=== PATIENT | male | born 1950 | race Caucasian/White ===

== ENCOUNTER → 2019-07-02 | Outpatient (CLI) | payer OTHER ==
--- NOTE | 2019-07-03 20:22 | SLE ---
[facility] [place] [address] POLYSOMNOGRAPHY STUDY Name: LUCHO GHOTRA Sid Room #: REG [facility]#: [id number] Admission: 07/02/19 ������������������ Attend Phys: Errol Kerns MD Discharge: ������������������ Date of : 52 Report #: [id number] THIS REPORT FOR: //name// CC: Errol FUNEZ DATE OF SERVICE: 07/02/2019 SLEEP STUDY ATTENDING PHYSICIAN: Dr. Lisa Carrion. The patient is 69 years old who weighs 217 pounds with a BMI of 30.3. The patient's [place] score is 5. The patient underwent diagnostic sleep study performed at [facility]. During the night study, the patient spent 423 minutes in bed and slept for 300 minutes with a sleep efficiency of 71%. Sleep latency was 28 minutes with a REM latency of 26.5 minutes, which is short. Overall, sleep architecture showed increased stage 1 and stage 2 sleep, absent slow wave and normal REM sleep. During the night of the study, the patient had one apnea, which was mixed and 42 hypopneas. The patient's apnea-hypopnea index was 8.6 per hour with a REM index of 19 per hour and a supine index of 0 per hour. EKG monitoring revealed average heart rate of 64 beats per minute. No sustained arrhythmias observed. No clinically significant PLM seen. Nocturnal oximetry study revealed an average oxygen saturation of 94% with lowest of 82%. Only 3 minutes were spent in oxygen saturation of less than 89%. Due to low AHI, the patient did not meet the split night criteria for CPAP initiation. IMPRESSION: 1. Mild sleep apnea-hypopnea syndrome with moderate increase during REM sleep. Total AHI 8.6 per hour with a REM AHI of 19.4 per hour. 2. No clinically significant periodic limb movements. 3. No clinically significant nocturnal hypoxia. RECOMMENDATIONS: 1. The patient does not meet the criteria for CPAP initiation. The patient has only mild sleep apnea. [facility] [address] [place] [address] POLYSOMNOGRAPHY STUDY Name: BRANDINLUCHO Sid Room #: REG [facility]#: [id number] Admission: 07/02/19 ������������������ Attend Phys: Errol Kerns MD Discharge: ������������������ Date of : 52 Report #: [id number] 2. I would recommend treating the patient's sleep apnea initially with weight loss. 3. If the patient remains clinically symptomatic or has comorbid conditions, then the patient's sleep apnea can be treated with CPAP or oral appliance. 4. Avoid [employer] depressants. 5. Cautioned regarding driving or operating heavy machinery, when sleepy. ��������������������������������������������� <ELECTRONICALLY SIGNED> ���������������������������������������� By: Errol Kerns MD ��������������������������������������������� 07/03/192021 [id number] Errol Kerns MD /nt
== END ==
LOC: SLEEPLAB 12:01
DX: G47.33 Obstructive sleep apnea (adult) (pediatric) (principal); G47.30 Sleep apnea, unspecified; Z79.899 Other long term (current) drug therapy; Z79.82 Long term (current) use of aspirin

== ENCOUNTER → 2019-11-14 | Outpatient (CLI) | payer OTHER | LOC: RAD 14:19 | DX: R06.02 Shortness of breath (principal) ==